=== PATIENT | male | born 1955 | race Caucasian/White ===

== ENCOUNTER 2017-07-08 12:36 | Day surgery (SDC) | payer OTHER ==
[2017-07-08] MEDS ORDERED: FENTAnyl 50 MCG/ML VIAL (14:31)
[2017-07-08] MEDS ORDERED: MIDAZOLAM 1 MG/ML 2 ML INJ (14:31)
[2017-07-08] MEDS ORDERED: PROPOFOL 20 ML (14:31)
== END 2017-07-08 16:05 | disposition home or self-care (01) ==
LOC: GIL 12:36
DX: R19.4 Change in bowel habit (principal); D12.6 Benign neoplasm of colon, unspecified; K57.90 Diverticulosis of intestine, part unspecified, without perforation or abscess without bleeding; K64.8 Other hemorrhoids
CPT/HCPCS: 45380; 88305